=== PATIENT | male | born 1990 | race Caucasian/White ===

== ENCOUNTER 2019-10-09 14:35 | Emergency (ER) | payer SELFPAY ==
[2019-10-09 15:48] LABS: Absolute Lymphocytes (CBC) 1.5 K/uL (0.7-4.9); Basophils % 2.3 % (0-1.3); Hematocrit 42.5 % (39.6-49.0); Lymphocytes % 30.9 % (15.3-44.8); MPV 7.3 fL (7.6-11.3); RBC Red Blood Cell Count 4.34 M/uL (4.33-5.43)
[2019-10-09] MEDS ORDERED: NA CHLORIDE 0.9% 1,000 ML ONE ×2 (15:52→18:52)
[2019-10-09] MEDS ORDERED: levETIRAcetam 1,000 MG in NA CHLORIDE 0.9% 100 ML IV ONE (16:00)
[2019-10-09 16:01] LABS: Protime INR 0.89
[2019-10-09 16:09] LABS: ALT/SGPT 55 U/L (12-78); AST/SGOT 55 U/L (15-37); Albumin 3.9 g/dL (3.4-5.0); Alkaline Phosphatase 96 U/L (45-117); BUN Blood Urea Nitrogen 11 mg/dL (7-18); Bicarbonate 25 mmol/L (21-32); Bilirubin Direct < 0.1 mg/dL (0-0.2); Bilirubin Total 0.2 mg/dL (0.2-1.0); Glucose Level 88 mg/dL (74-106); Potassium 3.3 mmol/L (3.5-5.1); Protein, Total 7.6 g/dL (6.4-8.2); Sodium Level 143 mmol/L (136-145)
--- NOTE | 2019-10-09 16:10 | RAD REPORT ---
EXAM DESCRIPTION: CT - Head Brain Wo Cont - 10/09/2019 3:57 pm CLINICAL HISTORY: Confused;Seizure COMPARISON: No comparisons TECHNIQUE: Axial 5 mm thick images of the head were obtained without IV contrast. All CT scans are performed using dose optimization technique as appropriate and may include automated exposure control or mA/KV adjustment according to patient size. FINDINGS: No intracranial hemorrhage, mass, edema or shift of mid-line structures. No acute infarcti on changes seen. No abnormal extra-axial fluid collections. Ventricles are normal. Patient has promin ent CSF posterior to the cerebellar hemispheres. Fourth ventricle is normal in appearance. Vermis is intact. This is believed to be a normal variant amada cisterna magna rather than an arachnoid cyst or other abnormality. Mastoid air cells and visualized portions of the paranasal sinuses are clear. No acute bony findings. IMPRESSION: Negative non-contrast CT head examination for acute intracranial finding.
--- NOTE | 2019-10-09 16:21 | ER ---
Nurse's Notes [facility] Name: Sim Pedersen Age: 29 yrs Sex: Male : 1990 Arrival Date: 10/09/2019 Time: 14:38 Bed 5 Private MD: Diagnosis: Epileptic seizures related to external causes;Hypokalemia;Alcohol abuse with intoxication Presentation: 10/08 14:40 Chief complaint: EMS states: WITNESSED SZ BY MOTHER, PT THEN NEAR-DROWNING WHILE bp POST-ICTAL. Coronavirus screen: Proceed with normal triage. Ebola Screen: No symptoms or risks identified at this time. Initial Sepsis Screen: Does the patient meet any 2 criteria? No. Patient's initial sepsis screen is negative. Does the patient have a suspected source of infection? No. Patient's initial sepsis screen is negative. Risk Assessment: Do you want to hurt yourself or someone else? Patient reports no desire to harm self or others. Onset of symptoms is unknown. Care prior to arrival: Medication(s) given: VERSED 5MG IM. 14:40 Method Of Arrival: EMS: [facility] bp 14:40 Acuity: SHE 3 bp Triage Assessment: 14:42 General: Appears in no apparent distress. comfortable, Behavior is cooperative, bp listless. Pain: Denies pain. EENT: No deficits noted. Neuro: Level of Consciousness is obeys commands, confused, lethargic, Oriented to person, place. Cardiovascular: Rhythm is sinus rhythm. Respiratory: No deficits noted. GI: No signs and/or symptoms were reported involving the gastrointestinal system. : No signs and/or symptoms were reported regarding the genitourinary system. Derm: No deficits noted. Musculoskeletal: No deficits noted. Historical: - Allergies: 14:42 No Known Allergies; bp - Home Meds: 14:42 None [Active]; bp - PMHx: 14:42 Seizures; bp - Immunization history:: Adult Immunizations unknown. - Social history:: Smoking status: unknown. - Family history:: not pertinent. Screenin:43 Abuse screen: Denies threats or abuse. Denies injuries from another. Nutritional bp screening: No deficits noted. Tuberculosis screening: No symptoms or risk factors identified. Fall Risk None identified. Assessment: 14:43 General: SEE TRIAGE NOTE. bp 14:55 Reassessment: FAMILY AT B/S, PT REMAINS POST-ICTAL. bp 15:50 Reassessment: PT TO CT. REMAINS LETHARGIC, BUT AROUSES TO STIMULI. bp 16:31 Reassessment: D/C ON HOLD PENDING INCREASED LEVEL OF CONSCIOUSNESS. bp 18:09 Reassessment: PT REMAINS OBTUNDED. D/C ON HOLD PENDING SOBRIETY. bp 20:00 Reassessment: Patient denies pain at this time. Patient states feeling better. Patient rv states symptoms have improved. Neuro: Level of Consciousness is awake, alert, obeys commands, Oriented to person, place, time, situation, Moves all extremities. Full function. Cardiovascular: Patient's skin is warm and dry. Rhythm is sinus rhythm. Vital Signs: 14:40 BP 112 / 76; Pulse 68; Resp 14; Temp 97.8; Pulse Ox 98% ; bp 14:54 BP 112 / 76; Pulse 75; Resp 18; Pulse Ox 99% ; bp 15:50 BP 102 / 66; Pulse 71; Resp 15; Pulse Ox 100% ; bp 17:00 BP 95 / 60; Pulse 75; Resp 14; Pulse Ox 100% ; bp 18:09 BP 95 / 56; Pulse 72; Resp 14; Pulse Ox 100% ; bp 19:30 BP 108 / 78; Pulse 70; Resp 17; Temp 98; Pulse Ox 99% ; rv Janice Coma Score: 14:42 Eye Response: to voice(3). Verbal Response: confused(4). Motor Response: obeys bp commands(6). Total: 13. ED Course: 14:38 Patient arrived in ED. la1 14:40 Carter Alvarez, RN is Primary Nurse. bp 14:41 Triage completed. bp 14:42 Arm band placed on. bp 14:43 Patient has correct armband on for positive identification. Bed in low position. Call bp light in reach. Side rails up X2. Seizure precautions initiated. 14:43 Inserted saline lock: 20 gauge in right forearm, using aseptic technique. Blood bp collected. 14:46 Eloy Layton MD is Attending Physician. arik 15:57 CT Head Brain wo Cont In Process Unspecified. EDMS 16:19 Jimmie Vasquez MD is Referral Physician. arik 20:01 No provider procedures requiring assistance completed. IV discontinued, intact, rv bleeding controlled, No redness/swelling at site. Pressure dressing applied. Administered Medications: 15:40 Drug: NS 0.9% 1000 ml Route: IV; Rate: 1 bolus; Site: right hand; bp 18:36 Follow up: IV Status: Completed infusion; IV Intake: 1000ml bp 16:17 Drug: Keppra 1000 mg Route: IV; Rate: per protocol; Site: right antecubital; bp 18:36 Follow up: IV Status: Completed infusion; IV Intake: 100ml bp 18:11 Not Given (PT OBTUNDED): Potassium Effervescent Tablet 25 mEq PO once; dissolve in 4 bp ounces of water or juice 18:45 Drug: Thiamine 100 mg Route: IV; Rate: per protocol; Site: right antecubital; bp 20:01 Follow up: IV Status: Completed infusion rv 18:45 Drug: Zofran (Ondansetron) 4 mg Route: IVP; Site: right antecubital; bp 20:01 Follow up: Response: No adverse reaction rv 18:45 Drug: NS 0.9% 1000 ml Route: IV; Rate: 1 bolus; Site: right antecubital; bp 20:01 Follow up: IV Status: Completed infusion; IV Intake: 500ml rv 18:45 Drug: Potassium Chloride 20 mEq Route: IV; Rate: per protocol; Site: right antecubital; bp 20:01 Follow up: IV Status: Completed infusion; IV Intake: 100ml rv 18:45 Drug: Banana Bag - (NS 0.9% 1000 ml, foLIC Acid 1 mg, Thiamine 100 mg, Multivitamin 1 bp amp) Route: IV; Rate: 250 ml/hr; Site: right antecubital; 20:00 Follow up: IV Status: Completed infusion; IV Intake: 500ml rv Intake: 18:36 IV: 100ml; Total: 100ml. bp 18:36 IV: 1000ml; Total: 1100ml. bp 20:00 IV: 500ml; Total: 1600ml. rv 20:01 IV: 100ml; Total: 1700ml. rv 20:01 IV: 500ml; Total: 2200ml. rv Outcome: 16:19 Discharge ordered by . airk 20:02 Discharged to home ambulatory. rv 20:02 Condition: good 20:02 Discharge instructions given to patient, Instructed on discharge instructions, follow up and referral plans. medication usage, Demonstrated understanding of instructions, follow-up care, medications, Prescriptions given X 1. 20:02 Patient left the ED. rv Signatures: Dispatcher [employer] EDTN Eloy Layton MD MD cha Attema, Lee, CONTACT CENTER DIRECTOR-C CONTACT CENTER DIRECTOR-Cla1 Carter Alvarez, RN RN Mark Sanches RN RN rv
--- NOTE | 2019-10-09 16:21 | EDPHYS ---
Physician Documentation [facility] Name: Sim Pedersen Age: 29 yrs Sex: Male : 1990 Arrival Date: 10/09/2019 Time: 14:38 Bed 5 Private MD: ED Physician Eloy Layton HPI: 10/08 15:33 This 29 yrs old Male presents to ER via EMS with complaints of Seizure. arik 15:33 The patient presents after having a single isolated seizure. Character of seizure(s): arik Loss of consciousness: the patient experienced loss of consciousness. Seizure onset: just prior to arrival. Context: the seizure(s) was witnessed, by family, mother. Seizure Hx: Cause: unknown, Last seizure: The patient's last seizure is unknown. Associated injury: The patient did not suffer any apparent associated injury. Current symptoms: post ictal. The patient has experienced similar episodes in the past, multiple times. Historical: - Allergies: 14:42 No Known Allergies; bp - Home Meds: 14:42 None [Active]; bp - PMHx: 14:42 Seizures; bp - Immunization history:: Adult Immunizations unknown. - Social history:: Smoking status: unknown. - Family history:: not pertinent. ROS: 15:33 Constitutional: Negative for fever, chills, and weight loss, Eyes: Negative for injury, arik pain, redness, and discharge, ENT: Negative for injury, pain, and discharge, Neck: Negative for injury, pain, and swelling, Cardiovascular: Negative for chest pain, palpitations, and edema, Respiratory: Negative for shortness of breath, cough, wheezing, and pleuritic chest pain, Abdomen/GI: Negative for abdominal pain, nausea, vomiting, diarrhea, and constipation, Back: Negative for injury and pain, : Negative for injury, bleeding, discharge, and swelling, MS/Extremity: Negative for injury and deformity, Skin: Negative for injury, rash, and discoloration, Psych: Negative for depression, anxiety, suicide ideation, homicidal ideation, and hallucinations, Allergy/Immunology: Negative for hives, rash, and allergies, Endocrine: Negative for neck swelling, polydipsia, polyuria, polyphagia, and marked weight changes. 15:33 Neuro: Positive for altered mental status, weakness. Exam: 15:33 Constitutional: This is a well developed, well nourished patient who is awake, alert, arik and in no acute distress. Head/Face: Normocephalic, atraumatic. Eyes: Pupils equal round and reactive to light, extra-ocular motions intact. Lids and lashes normal. Conjunctiva and sclera are non-icteric and not injected. Cornea within normal limits. Periorbital areas with no swelling, redness, or edema. ENT: Nares patent. No nasal discharge, no septal abnormalities noted. Tympanic membranes are normal and external auditory canals are clear. Oropharynx with no redness, swelling, or masses, exudates, or evidence of obstruction, uvula midline. Mucous membranes moist. Neck: Trachea midline, no thyromegaly or masses palpated, and no cervical lymphadenopathy. Supple, full range of motion without nuchal rigidity, or vertebral point tenderness. No Meningismus. Chest/axilla: Normal chest wall appearance and motion. Nontender with no deformity. No lesions are appreciated. Cardiovascular: Regular rate and rhythm with a normal S1 and S2. No gallops, murmurs, or rubs. Normal PMI, no JVD. No pulse deficits. Respiratory: Lungs have equal breath sounds bilaterally, clear to auscultation and percussion. No rales, rhonchi or wheezes noted. No increased work of breathing, no retractions or nasal flaring. Abdomen/GI: Soft, non-tender, with normal bowel sounds. No distension or tympany. No guarding or rebound. No evidence of tenderness throughout. Back: No spinal tenderness. No costovertebral tenderness. Full range of motion. Male : Normal genitalia with no discharge or lesions. Skin: Warm, dry with normal turgor. Normal color with no rashes, no lesions, and no evidence of cellulitis. MS/ Extremity: Pulses equal, no cyanosis. Neurovascular intact. Full, normal range of motion. Psych: Awake, alert, with orientation to person, place and time. Behavior, mood, and affect are within normal limits. 15:33 Neuro: Orientation: unable to test, Mentation: unable to test, Memory: unable to test, Cranial nerves: is grossly normal based on the patient's age, no acute changes, Cerebellar function: unable to test, Motor: moves all fours, Sensation: no obvious gross deficits, Gait: not tested. seizure activity, is not displayed by the patient. 15:37 ECG was reviewed by the Attending Physician. arik Vital Signs: 14:40 BP 112 / 76; Pulse 68; Resp 14; Temp 97.8; Pulse Ox 98% ; bp 14:54 BP 112 / 76; Pulse 75; Resp 18; Pulse Ox 99% ; bp 15:50 BP 102 / 66; Pulse 71; Resp 15; Pulse Ox 100% ; bp 17:00 BP 95 / 60; Pulse 75; Resp 14; Pulse Ox 100% ; bp 18:09 BP 95 / 56; Pulse 72; Resp 14; Pulse Ox 100% ; bp 19:30 BP 108 / 78; Pulse 70; Resp 17; Temp 98; Pulse Ox 99% ; rv Janice Coma Score: 14:42 Eye Response: to voice(3). Verbal Response: confused(4). Motor Response: obeys bp commands(6). Total: 13. MDM: 14:46 Patient medically screened. arik 15:36 Data reviewed: vital signs, nurses notes, lab test result(s), EKG, radiologic studies, arik CT scan, plain films. 15:45 Differential diagnosis: drug overdose, seizure. Data interpreted: desk monitor: rate arik is 69 beats/min, rhythm is normal sinus rhythm, Pulse oximetry: on room air is 99 %. Test interpretation: by ED physician or midlevel provider: ECG. Counseling: I had a detailed discussion with the patient and/or guardian regarding: the historical points, exam findings, and any diagnostic results supporting the discharge/admit diagnosis, lab results, radiology results, the need for outpatient follow up, for definitive care, a neurologist. 15:46 ED course: hx of seizures, off keppra, loaded and watched. arik 18:17 ED course: pt with gross etoh intoxication, 379 mg/dl. [facility] 10/08 15:33 Order name: Acetaminophen; Complete Time: 16:16 [facility] 10/08 15:33 Order name: Basic Metabolic Panel; Complete Time: 16:16 [facility] 10/08 15:33 Order name: CBC with Diff; Complete Time: 16:16 [facility] 10/08 15:33 Order name: ETOH Level; Complete Time: 18:14 [facility] 10/08 15:33 Order name: Hepatic Function; Complete Time: 16:16 [facility] 10/08 15:33 Order name: PT-INR; Complete Time: 16:16 [facility] 10/08 15:33 Order name: Ptt, Activated; Complete Time: 16:16 [facility] 10/08 15:33 Order name: Salicylate; Complete Time: 16:16 [facility] 10/08 15:33 Order name: CT Head Brain wo Cont; Complete Time: 16:16 [facility] 10/08 15:33 Order name: EKG; Complete Time: 15:34 [facility] 10/08 15:33 Order name: EKG - Nurse/Tech; Complete Time: 15:38 [facility] 10/08 15:33 Order name: IV Saline Lock; Complete Time: 15:38 [facility] 10/08 15:33 Order name: Labs collected and sent; Complete Time: 15:50 [facility] 10/08 15:33 Order name: Seizure Precautions; Complete Time: 15:38 [facility] EC:37 Rate is 69 beats/min. Rhythm is regular. QRS Larue is Normal. NM interval is normal. QRS arik interval is normal. QT interval is normal. No Q waves. T waves are Normal. No ST changes noted. Clinical impression: Normal ECG and No evidence of ischemia. Interpreted by me. Reviewed by me. Administered Medications: 15:40 Drug: NS 0.9% 1000 ml Route: IV; Rate: 1 bolus; Site: right hand; bp 18:36 Follow up: IV Status: Completed infusion; IV Intake: 1000ml bp 16:17 Drug: Keppra 1000 mg Route: IV; Rate: per protocol; Site: right antecubital; bp 18:36 Follow up: IV Status: Completed infusion; IV Intake: 100ml bp 18:11 Not Given (PT OBTUNDED): Potassium Effervescent Tablet 25 mEq PO once; dissolve in 4 bp ounces of water or juice 18:45 Drug: Thiamine 100 mg Route: IV; Rate: per protocol; Site: right antecubital; bp 20:01 Follow up: IV Status: Completed infusion rv 18:45 Drug: Zofran (Ondansetron) 4 mg Route: IVP; Site: right antecubital; bp 20:01 Follow up: Response: No adverse reaction rv 18:45 Drug: NS 0.9% 1000 ml Route: IV; Rate: 1 bolus; Site: right antecubital; bp 20:01 Follow up: IV Status: Completed infusion; IV Intake: 500ml rv 18:45 Drug: Potassium Chloride 20 mEq Route: IV; Rate: per protocol; Site: right antecubital; bp 20:01 Follow up: IV Status: Completed infusion; IV Intake: 100ml rv 18:45 Drug: Banana Bag - (NS 0.9% 1000 ml, foLIC Acid 1 mg, Thiamine 100 mg, Multivitamin 1 bp amp) Route: IV; Rate: 250 ml/hr; Site: right antecubital; 20:00 Follow up: IV Status: Completed infusion; IV Intake: 500ml rv Disposition: 10/09/19 16:19 Discharged to Home. Impression: Epileptic seizures related to external causes, Hypokalemia, Alcohol abuse with intoxication. - Condition is Stable. - Discharge Instructions: Alcohol Intoxication, Potassium Content of Foods, Seizure, Adult, Alcohol Intoxication, [id number], Alcohol Abuse and Nutrition, Seizure, Adult, [id number], Hypokalemia. - Prescriptions for Keppra 500 mg Oral Tablet - take 1 tablet by ORAL route every 12 hours; 20 tablet. - Medication Reconciliation Form, Thank You Letter, Antibiotic Education, Prescription Opioid Use form. - Follow up: Private Physician; When: 2 - 3 days; Reason: Recheck today's complaints, Continuance of care, Re-evaluation by your physician. Follow up: Jimmie Vasquez; When: 2 - 3 days; Reason: Recheck today's complaints, Re-evaluation by your physician. - Problem is new. - Symptoms have improved. Signatures: Dispatcher [employer] EDEloy Santana MD MD cha Peltier, Brian, RN RN bp Mark Caballero RN RN rv Corrections: (The following items were deleted from the chart) 18:15 16:19 10/09/2019 16:19 Discharged to Home. Impression: Epileptic seizures related to arik external causes; Hypokalemia. Condition is Stable. Discharge Instructions: Seizure, Adult, Seizure, Adult, [id number]. Prescriptions for Keppra 500 mg Oral Tablet - take 1 tablet by ORAL route every 12 hours; 20 tablet. and Forms are Medication Reconciliation Form, Thank You Letter, Antibiotic Education, Prescription Opioid Use. Follow up: Private Physician; When: 2 - 3 days; Reason: Recheck today's complaints, Continuance of care, Re-evaluation by your physician. Follow up: Jimmie Vasquez; When: 2 - 3 days; Reason: Recheck today's complaints, Re-evaluation by your physician. Problem is new. Symptoms have improved. [facility] 20:02 18:15 10/09/2019 16:19 Discharged to Home. Impression: Epileptic seizures related to rv external causes; Hypokalemia; Alcohol abuse with intoxication. Condition is Stable. Discharge Instructions: Seizure, Adult, Seizure, Adult, [id number], Potassium Content of Foods, Hypokalemia. Prescriptions for Keppra 500 mg Oral Tablet - take 1 tablet by ORAL route every 12 hours; 20 tablet. and Forms are Medication Reconciliation Form, Thank You Letter, Antibiotic Education, Prescription Opioid Use. Follow up: Private Physician; When: 2 - 3 days; Reason: Recheck today's complaints, Continuance of care, Re-evaluation by your physician. Follow up: Jimmie Vasquez; When: 2 - 3 days; Reason: Recheck today's complaints, Re-evaluation by your physician. Problem is new. Symptoms have improved. [facility]
[2019-10-09] MEDS ORDERED: ONDANSETRON 4 MG/2 ML VIAL ONE (18:51)
[2019-10-09] MEDS ORDERED: THIAMINE 200 MG/2 ML INJ ONE (18:51)
[2019-10-09] MEDS ORDERED: KCL 20 MEQ/100 mL IVPB 20 MEQ/100 ML BAG IV ONE (18:52)
[2019-10-09] MEDS ORDERED: FOLIC ACID 1 MG, MULTIVITAMINS INJ 10 ML, THIAMINE HCL 100 MG in NA CHLORIDE 0.9% 1,000 ML IV ONE (19:00)
[2019-10-09 20:07] VITALS: TEMP 97.8
[2019-10-09 20:09] VITALS: O2SAT 100
[2019-10-09 20:12] VITALS: BP 95/56
--- NOTE | 2019-10-10 12:34 | EKG ---
Test Date: 2019-10-09 Test Time: 14:31:28 Shirring Machine Operator: KEERTHI MEASUREMENT RESULTS: Intervals: Rate: 69 IL: 150 QRSD: 96 QT: 384 QTc: 411 [place]: P: 50 IL: 150 QRS: 48 T: 58 INTERPRETIVE STATEMENTS: Normal sinus rhythm Normal ECG No previous ECG available for comparison Electronically Signed On 10-10-19 12:33:08 CDT by Remy Jensen
== END 2019-10-09 20:02 | disposition home or self-care (01) ==
LOC: ER 14:35
DX: G40.509 Epileptic seizures related to external causes, not intractable, without status epilepticus (principal); E87.6 Hypokalemia; F10.129 Alcohol abuse with intoxication, unspecified
CPT/HCPCS: 36415; 70450; 80048; 80076; 80320; 80329; 85025; 85610; 85730; 93005; 96361; 96365; 96366; 96367; 96368; 96375; 99284; J1953; J2405; J3411; J7030